=== PATIENT | female | born 1945 | race Caucasian/White ===

== ENCOUNTER → 2016-04-18 | Outpatient (CLI) | payer MEDICARE ==
[~2016-04-18] MED LIST: APIX2.5T PO; ASPI1TAB91 PO; CARD120C4 PO; FENO134C PO; GLYB1TAB94 PO; ISOS30TA3 PO; LANTUS2P SQ; LOVA40TA PO; METO50TA PO; RAMI2.5C PO; TRAM50TA PO; VENTAER INH
[2016-04-18 13:44] LABS: BLOOD GAS CARBOXYHEMOGLOBIN 1.5 % (0-4); BLOOD GAS HCO3 23 mmol/L (22-26); BLOOD GAS METHEMOGLOBIN 0.9 % (0-2); BLOOD GAS O2 HGB SATURATION 94 % (90-100); BLOOD GAS OXYGEN CONTENT 19.1 Vol % (12.0-20.0); BLOOD GAS PCO2 38 mmHg (38-42); BLOOD GAS PO2 83 mmHg (61-120); BLOOD GAS TOTAL HGB 14.5 G/DL (12.0-16.0); TEMP CORR TO 98.6
[2016-04-18 13:45] LABS: CRITICAL VALUE NO; DRAW SITE RT RADIAL; FIO2 21 %; NUMBER OF ARTERIAL PUNCTURES 1; STAT NO; ULNAR PULSE PRESENT
--- NOTE | 2016-04-19 09:11 | RSPPFT ---
DATE OF PROCEDURE: 04/18/16 COMMENTS: VOLUMES DYNAMIC: FVC and FEV1 moderately reduced. STATIC: TLC mildly reduced; VTG and RV normal. FLOWS: FEV1% normal; FEF 25-75 moderately reduced. DIFFUSION: Low normal. FLOW VOLUME LOOP: Restrictive configuration. IMPRESSION: Mild to moderate restrictive ventilatory defect with a mild increase in airways resistance and terminal airflow obstruction. Diffusion is at the lower limit of normal. Minimal change post-bronchodilator.
== END ==
LOC: HRSP 11:57
PROVIDERS: ATTEND Internal Medicine
DX: J45.909 Unspecified asthma, uncomplicated (principal); R06.2 Wheezing
CPT/HCPCS: 36600; 82805; 94060; 94620; 94726; 94729